=== PATIENT | female | born 2005 | race Caucasian/White ===

== ENCOUNTER → 2025-01-07 10:09 | Outpatient (REF) | payer OTHER, SELFPAY ==
[2025-01-09 17:37] LABS: Quantiferon Mitogen minus NIL 9.96 IU/mL; Quantiferon NIL 0.04 IU/mL; Quantiferon TB Gold Plus Negative (Negative)
== END ==
LOC: OHS 10:09
PROVIDERS: ATTENDING PHYSICIAN Nurse Practitioner Family
DX: Z23 Encounter for immunization (principal)
CPT/HCPCS: 36415; 86480